=== PATIENT | female | born 1990 | race Caucasian/White ===

== ENCOUNTER 2017-02-06 05:50 | Day surgery (SDC) | payer SELFPAY ==
[2017-02-06] VITALS (9 sets, daily range): BP systolic 89–127; BP diastolic 40–70; PULSE 62–80; TEMP 98–98.3
[~2017-02-06] VITALS: Ht 167.6 cm; Wt 120.8 kg
[2017-02-06] MEDS ORDERED: PERCOCET 325 MG1 TA2 PO (08:12)
[2017-02-06] MEDS ORDERED: ASPIRIN 32325 MG/TAB PO (08:13)
[2017-02-06] MEDS ORDERED: COLACE 100100 MG/CAP PO (08:14)
[2017-02-06] MEDS ORDERED: MOBIC15 MG PO (08:15)
[2017-02-06] MEDS ORDERED: ZOFRAN 4MG T4 MG/TAB PO (08:16)
== END 2017-02-06 14:00 | disposition home or self-care (01) ==
LOC: SDCO 05:50
DX: S82.831A Other fracture of upper and lower end of right fibula, initial encounter for closed fracture (principal); S93.431A Sprain of tibiofibular ligament of right ankle, initial encounter; G47.33 Obstructive sleep apnea (adult) (pediatric); Z87.891 Personal history of nicotine dependence; Z83.3 Family history of diabetes mellitus
CPT/HCPCS: C1713; C1776; J0690; J1100; J2250; J2405; J2704; J2795; J3010; J7030; J7120

== ENCOUNTER → 2018-02-18 | Outpatient (CLI) | payer SELFPAY ==
[~2018-02-18] MED LIST: ASPIRIN 32325 MG/TAB PO; COLACE 100100 MG/CAP PO; MOBIC15 MG PO; PERCOCET 325 MG1 TA2 PO; ZOFRAN 4MG T4 MG/TAB PO
== END ==
LOC: COL.RAD 13:00
DX: M25.571 Pain in right ankle and joints of right foot (principal); Z98.890 Other specified postprocedural states

== ENCOUNTER 2018-03-27 12:57 | Day surgery (SDC) | payer SELFPAY ==
[~2018-03-27] VITALS: Ht 170.2 cm; Wt 109.3 kg
[2018-03-27 14:10] VITALS: BP 126/66; PULSE 79; TEMP 97.4
[2018-03-27] MEDS ORDERED: TYLENOL 500MG500 MG PO (14:18)
[2018-03-27 16:25] VITALS: TEMP 96.8
[2018-03-27 16:50] VITALS: BP 117/82; PULSE 83
[2018-03-27] MEDS ORDERED: ASPIRIN 32325 MG/TAB PO (16:58)
[2018-03-27] MEDS ORDERED: PERCOCET 325 MG1 TA2 PO (16:58)
[2018-03-27] MEDS ORDERED: MOBIC15 MG PO (17:00)
[2018-03-27] MEDS ORDERED: COLACE 100100 MG/CAP PO (17:02)
[2018-03-27] MEDS ORDERED: ZOFRAN 4MG T4 MG/TAB PO (17:03)
[2018-03-27 17:05] VITALS: BP 118/80; PULSE 79
[2018-03-27 17:20] VITALS: BP 116/76; PULSE 77
[2018-03-27 17:35] VITALS: BP 112/72; PULSE 80
== END 2018-03-27 18:45 | disposition home or self-care (01) ==
LOC: SDCO 12:57
DX: Z47.2 Encounter for removal of internal fixation device (principal); M66.871 Spontaneous rupture of other tendons, right ankle and foot; G89.18 Other acute postprocedural pain; E66.01 Morbid (severe) obesity due to excess calories; G47.33 Obstructive sleep apnea (adult) (pediatric); Z68.41 Body mass index [BMI] 40.0-44.9, adult; Z87.891 Personal history of nicotine dependence; Z83.3 Family history of diabetes mellitus
CPT/HCPCS: J0690; J1100; J2250; J2270; J2405; J2550; J2704; J3010; J7120